=== PATIENT | female | born 1965 | race Caucasian/White ===

== ENCOUNTER 2016-11-02 13:19 | Emergency (ER) | payer OTHER ==
[2016-11-02] MEDS ORDERED: ONDANSETRON 2MG/ML, 2ML ONE (14:25)
[2016-11-02] MEDS ORDERED: HYDROmorphone 1 MG/ML, 1ML ONE (14:25)
[2016-11-02 15:02] LABS: ASPARTATE AMINO TRANSFERASE 18 U/L (15-37); BLOOD UREA NITROGEN 10 mg/dL (7-18)
[2016-11-02] MEDS ORDERED: OMNIPAQUE 350 MG/ML, 100ML BOTTLE ONE (15:30)
[2016-11-02] MEDS ORDERED: CIPROFLOXACIN 500 MG TABLET ONE (16:33)
[2016-11-02] MEDS ORDERED: METRONIDAZOLE PMX 500MG/100ML 100 ML ONE (16:33)
== END 2016-11-02 17:02 ==
LOC: ED 13:19
DX: K57.32 Diverticulitis of large intestine without perforation or abscess without bleeding (principal)
CPT/HCPCS: 36415; 74177; 80053; 81001; 85025; 99285; Q9967

== ENCOUNTER 2017-05-03 16:01 | Emergency (ER) | payer OTHER ==
[~2017-05-03] VITALS: Ht 170.2 cm; Wt 72.7 kg
[~2017-05-03 16:01] MED LIST: ACET650S21 PO; BUPR-173 PO; ESCI10TA10 PO; LACT1CAP11 PO; LEVO150T PO; OMEG1CAP23 PO
[2017-05-03 16:45] LABS: HEMATOCRIT 42.3 % (34.6-47.8); HEMOGLOBIN 14.4 g/dL (11.7-16.4); WHITE BLOOD COUNT 11.4 x10^3/uL (3.4-10)
[2017-05-03 16:56] LABS: ASPARTATE AMINO TRANSFERASE 15 U/L (15-37); BLOOD UREA NITROGEN 13 mg/dL (7-18)
[2017-05-03] MEDS ORDERED: SODIUM CHLORIDE 0.9% 1,000ML IVBOLUS ONE (17:00)
[2017-05-03] MEDS ORDERED: FAMOTIDINE 20 MG/2 ML IVP ONE (17:00)
[2017-05-03] MEDS ORDERED: ONDANSETRON 2MG/ML, 2ML IVPush ONE (17:00)
[2017-05-03] MEDS ORDERED: SODIUM CHLORIDE FLUSH 10ML SYR IVF ONE (17:30)
[2017-05-03] MEDS ORDERED: FAMOTIDINE 20 MG/2 ML ONE (17:40)
[2017-05-03] MEDS ORDERED: ONDANSETRON 2MG/ML, 2ML ONE (17:40)
[2017-05-03] MEDS ORDERED: morphine SULFATE 10 MG/ML, 1ML ONE ×2 (17:42→19:58)
[2017-05-03] MEDS: morphine SULFATE 10 MG/ML, 1ML IVPush PRN ×2 (17:46→20:11)
[2017-05-03 18:04] LABS: PATH.CAST-FLAG NOT PRESENT; SPERM-FLAG NOT PRESENT; SRC-FLAG NOT PRESENT; XTAL-FLAG NOT PRESENT; YLC-FLAG NOT PRESENT
[2017-05-03] MEDS ORDERED: CIPROFLOXACIN/PMX 400MG/200ML 200 ML ONE (18:25)
[2017-05-03] MEDS ORDERED: METRONIDAZOLE PMX 500MG/100ML 100 ML IV ONE (18:30)
[2017-05-03] MEDS ORDERED: CIPROFLOXACIN/PMX 400MG/200ML 200 ML IV ONE (18:30)
[2017-05-03 19:24] VITALS: BP 134/63
[2017-05-03] MEDS ORDERED: METRONIDAZOLE PMX 500MG/100ML 100 ML ONE (19:57)
== END 2017-05-03 21:43 | disposition home or self-care (01) ==
LOC: ED 21:37
DX: K57.32 Diverticulitis of large intestine without perforation or abscess without bleeding (principal); Z88.2 Allergy status to sulfonamides; Z88.1 Allergy status to other antibiotic agents
CPT/HCPCS: 36415; 80053; 81001; 83690; 85025; 87086; 96361; 96365; 96366; 96367; 96375; 96376; 99285; J0744; J2270; J2405; J7030; S0028

== ENCOUNTER → 2017-06-23 | Outpatient (CLI) | payer OTHER ==
[~2017-06-23] MED LIST changes: +CLON1TAB PO; +DIAZ2TAB PO; +MULT1TAB60 PO; +ZOLP-413 PO
== END | disposition home or self-care (01) ==
LOC: STAR 11:28 → MERGE 11:30
PROVIDERS: ATTEND Surgery
DX: Z01.818 Encounter for other preprocedural examination (principal); K57.30 Diverticulosis of large intestine without perforation or abscess without bleeding; R94.31 Abnormal electrocardiogram [ECG] [EKG]
CPT/HCPCS: 93005

== ENCOUNTER 2017-06-28 11:30 | Inpatient (IN) | payer OTHER ==
[2017-06-23 10:00] VITALS: BP 115/82
[~2017-06-28] VITALS: Ht 170.2 cm; Wt 74.2 kg
[~2017-06-28 11:30] MED LIST changes: +BUPIVACAINE/PF 0.5% ONE; +DEXAMETHASONE 4 MG/ML, 1ML ONE; +INDOCYANINE GREEN 25 MG VIAL ONE; +ONDANSETRON 2MG/ML, 2ML ONE; +PROPOFOL 10 MG/ML, 50ML ONE
[2017-06-28] MEDS ORDERED: BUPIVACAINE/PF 0.5% ONE (14:00)
[2017-06-28] MEDS ORDERED: EPINEPHRINE 1 MG/ML, 1ML ONE (14:01)
[2017-06-28] MEDS ORDERED: INDOCYANINE GREEN 25 MG VIAL ONE ×2 (14:01→16:37)
[2017-06-28] MEDS ORDERED: LACTATED RINGERS 1,000 ML IV SCH (14:02)
[2017-06-28] MEDS ORDERED: LIDOCAINE 1%, 2ML ONE (14:10)
[2017-06-28] MEDS ORDERED: SCOPOLAMINE PATCH, 1.5MG PATCH.TD72 TD ONE ×2 (14:15→14:30)
[2017-06-28] MEDS ORDERED: ROCURONIUM 10 MG/ML,10ML ONE (14:18)
[2017-06-28] MEDS ORDERED: PROPOFOL 10 MG/ML, 20ML ONE (14:18)
[2017-06-28] MEDS ORDERED: CEFOTETAN PMX 2GM/50ML 50 ML ONE (14:19)
[2017-06-28] MEDS ORDERED: MIDAZOLAM 1 MG/ML, 2ML ONE (14:20)
[2017-06-28] MEDS ORDERED: FENTANYL PF 250 MCG/5ML ONE (14:20)
[2017-06-28] MEDS ORDERED: HYDROmorphone 2 MG/ML, 1ML ONE (14:21)
[2017-06-28] MEDS ORDERED: GLYCOPYRROLATE 0.4 MG/2 ML, 2ML ONE (17:32)
[2017-06-28] MEDS ORDERED: NEOSTIGMINE 1 MG/ML, 10ML ONE (17:32)
[2017-06-28] MEDS ORDERED: DIPHENHYDRAMINE 25 MG CAPSULE PO PRN (18:00)
[2017-06-28] MEDS ORDERED: LORazepam 1MG TABLET PO PRN (18:00)
[2017-06-28] MEDS ORDERED: ACETAMINOPHEN 325 MG TABLET PO PRN (18:00)
[2017-06-28] MEDS ORDERED: OXYcodone 5 MG/5 ML ORAL.SOL UDC PO PRN (18:00)
[2017-06-28] MEDS ORDERED: FENTANYL PF 100 MCG/2ML IV PRN (18:00)
[2017-06-28] MEDS: ENOXAPARIN 30 MG/0.3 ML SQ SCH (18:00)
[2017-06-28] MEDS ORDERED: HYDROmorphone 1 MG/ML, 1ML IV PRN (18:00)
[2017-06-28] MEDS: ACETAMINOPHEN 500 MG TABLET PO SCH (18:00)
[2017-06-28] MEDS ORDERED: EPHEDRINE 50 MG/ML, 1ML IVPush PRN (18:00)
[2017-06-28] MEDS ORDERED: CALCIUM CARBONATE 500 MG TAB.CHEW PO PRN (18:00)
[2017-06-28] MEDS ORDERED: ONDANSETRON 2MG/ML, 2ML IVPush PRN ×2 (18:00)
[2017-06-28] MEDS ORDERED: hydrALAzine 20 MG/ML, 1ML IV PRN (18:00)
[2017-06-28] MEDS ORDERED: ALBUTEROL SULFATE 2.5 MG/3 ML NPPB PRN (18:00)
[2017-06-28] MEDS ORDERED: LABETALOL 5MG/ML, 20ML IV PRN (18:00)
[2017-06-28] MEDS ORDERED: METOPROLOL 1 MG/ML, 5ML IV PRN (18:00)
[2017-06-28] MEDS ORDERED: ACETAMINOPHEN 650 MG/20.3 ML UDC ONE (18:33)
[2017-06-28] MEDS ORDERED: OXYcodone 5 MG/5 ML ORAL.SOL UDC ONE (18:33)
[2017-06-28] MEDS ORDERED: FENTANYL PF 100 MCG/2ML ONE (18:33)
[2017-06-28 19:45] VITALS: BP 119/68
[2017-06-28] MEDS: SODIUM CHLORIDE FLUSH 10ML SYR IVF SCH (21:15)
[2017-06-28] MEDS: IBUPROFEN 800 MG TABLET PO SCH (21:15)
[2017-06-28] MEDS: D5%-0.45NACL+KCL 20MEQ 1,000 ML IV SCH (21:15)
[2017-06-28] MEDS: OXYcodone IR 5MG TABLET PO PRN (23:03)
[2017-06-29] MEDS: ACETAMINOPHEN 500 MG TABLET PO SCH ×4 (00:19→17:50)
[2017-06-29] MEDS: OXYcodone IR 5MG TABLET PO PRN ×5 (00:24→17:51)
[2017-06-29 00:25] VITALS: BP 117/75
[2017-06-29] MEDS ORDERED: HYDROmorphone 2 MG/ML, 1ML ONE ×3 (02:47→20:24)
[2017-06-29] MEDS: HYDROmorphone 1 MG/ML, 1ML IVPush PRN ×3 (02:50→20:28)
[2017-06-29 04:02] VITALS: BP 98/63
[2017-06-29 05:00] LABS: BASOPHILS # (AUTO) 0.02 x10^3/uL (0-0.1); BASOPHILS % (AUTO) 0 % (0-1); EOSINOPHILS % (AUTO) 0 % (1-7); LYMPHOCYTES # (AUTO) 0.62 x10^3/uL (1-3.4); LYMPHOCYTES % (AUTO) 7 % (22-44); MD NO; MEAN CORPUSCULAR HEMOGLOBIN 31.4 pg (27.0-34.8); MEAN CORPUSCULAR HGB CONC 34.3 g/dL (32.4-35.8); MEAN CORPUSCULAR VOLUME 91.5 fL (80-100); MEAN PLATELET VOLUME 9.2 fL (7.4-10.4); MONOCYTES # (AUTO) 0.69 x10^3/uL (0.2-0.8); MONOCYTES % (AUTO) 8 % (2-9); NEUTROPHILS # (AUTO) 7.29 x10^3/uL (1.8-6.8); NEUTROPHILS % (AUTO) 85 % (42-75); PLATELET COUNT 224 x10^3/uL (130-400); RED BLOOD COUNT 3.93 x10^6/uL (3.82-5.3)
[2017-06-29 05:15] LABS: ALBUMIN 3.2 g/dL (3.4-5.0); ANION GAP 6 mmol/L (5-15); CALCIUM 8.5 mg/dL (8.5-10.1); CHLORIDE 109 mmol/L (98-107); CREATININE 0.73 mg/dL (0.55-1.02)
[2017-06-29] MEDS: LEVOTHYROXINE 125 MCG TABLET PO SCH (05:40)
[2017-06-29] MEDS: ENOXAPARIN 30 MG/0.3 ML SQ SCH ×2 (05:41→18:42)
[2017-06-29 07:20] VITALS: BP 126/78
[2017-06-29] MEDS: SODIUM CHLORIDE FLUSH 10ML SYR IVF SCH ×2 (09:16→20:27)
[2017-06-29] MEDS: BUPROPION SR 100 MG TABLET PO SCH (09:39)
[2017-06-29] MEDS: IBUPROFEN 800 MG TABLET PO SCH ×3 (09:48→20:27)
[2017-06-29] MEDS: MULTIVITAMIN 1 TABLET PO SCH (09:48)
[2017-06-29] MEDS: D5%-0.45NACL+KCL 20MEQ 1,000 ML IV SCH (13:23)
[2017-06-29 16:00] VITALS: BP 105/79
[2017-06-29 20:08] VITALS: BP 138/87
[2017-06-30 01:38] VITALS: BP 117/68
[2017-06-30] MEDS: OXYcodone IR 5MG TABLET PO PRN ×6 (03:44→21:54)
[2017-06-30 06:35] VITALS: BP 110/72
[2017-06-30] MEDS: LEVOTHYROXINE 125 MCG TABLET PO SCH (06:38)
[2017-06-30] MEDS: ACETAMINOPHEN 500 MG TABLET PO SCH ×4 (06:38→17:02)
[2017-06-30] MEDS: ENOXAPARIN 30 MG/0.3 ML SQ SCH ×2 (06:38→17:02)
[2017-06-30] MEDS: D5%-0.45NACL+KCL 20MEQ 1,000 ML IV SCH (08:14)
[2017-06-30] MEDS: MULTIVITAMIN 1 TABLET PO SCH (08:41)
[2017-06-30] MEDS: DOCUSATE 100 MG CAPSULE PO SCH ×2 (08:41→20:06)
[2017-06-30] MEDS: IBUPROFEN 800 MG TABLET PO SCH ×3 (08:41→21:54)
[2017-06-30] MEDS: LACTOBACILLUS 1GM/ PACKET PO SCH ×3 (08:42→20:06)
[2017-06-30] MEDS: KETOROLAC 30 MG/1 ML IVPush SCH ×3 (08:42→20:05)
[2017-06-30] MEDS: SODIUM CHLORIDE FLUSH 10ML SYR IVF SCH ×2 (08:42→20:06)
[2017-06-30] MEDS: BUPROPION SR 100 MG TABLET PO SCH (08:43)
[2017-06-30 12:59] VITALS: BP 120/77
[2017-06-30 19:11] VITALS: BP 109/71
[2017-07-01] MEDS: ACETAMINOPHEN 500 MG TABLET PO SCH ×5 (01:21→23:36)
[2017-07-01] MEDS: OXYcodone IR 5MG TABLET PO PRN ×6 (01:22→23:36)
[2017-07-01 01:31] VITALS: BP 137/88
[2017-07-01] MEDS: KETOROLAC 30 MG/1 ML IVPush SCH ×4 (01:46→21:12)
[2017-07-01] MEDS: D5%-0.45NACL+KCL 20MEQ 1,000 ML IV SCH (03:31)
[2017-07-01] MEDS: ENOXAPARIN 30 MG/0.3 ML SQ SCH ×2 (06:48→17:56)
[2017-07-01] MEDS: LEVOTHYROXINE 125 MCG TABLET PO SCH (06:50)
[2017-07-01 07:23] VITALS: BP 130/72
[2017-07-01] MEDS: BUPROPION SR 100 MG TABLET PO SCH (08:52)
[2017-07-01] MEDS: SODIUM CHLORIDE FLUSH 10ML SYR IVF SCH ×2 (08:52→21:00)
[2017-07-01] MEDS: MULTIVITAMIN 1 TABLET PO SCH (08:52)
[2017-07-01] MEDS: DOCUSATE 100 MG CAPSULE PO SCH ×2 (09:00→21:12)
[2017-07-01] MEDS: IBUPROFEN 800 MG TABLET PO SCH ×3 (09:00→21:00)
[2017-07-01] MEDS: LACTOBACILLUS 1GM/ PACKET PO SCH ×3 (12:17→21:12)
[2017-07-01] MEDS: NYSTATIN 500,000 UNITS/5 ML UDC PO SCH ×3 (12:17→21:12)
[2017-07-01 12:58] VITALS: BP 104/71
[2017-07-01 19:16] VITALS: BP 144/86
[2017-07-02] MEDS: D5%-0.45NACL+KCL 20MEQ 1,000 ML IV SCH (01:01)
[2017-07-02 02:41] VITALS: BP 131/88
[2017-07-02] MEDS: KETOROLAC 30 MG/1 ML IVPush SCH ×2 (02:48→08:00)
[2017-07-02] MEDS: OXYcodone IR 5MG TABLET PO PRN (04:11)
[2017-07-02] MEDS: ENOXAPARIN 30 MG/0.3 ML SQ SCH (06:00)
[2017-07-02] MEDS: ACETAMINOPHEN 500 MG TABLET PO SCH (06:42)
[2017-07-02] MEDS: LEVOTHYROXINE 125 MCG TABLET PO SCH (06:42)
[2017-07-02] MEDS: NYSTATIN 500,000 UNITS/5 ML UDC PO SCH ×2 (06:42→11:10)
[2017-07-02 07:22] VITALS: BP 138/89
[2017-07-02] MEDS: MULTIVITAMIN 1 TABLET PO SCH (08:33)
[2017-07-02] MEDS: BUPROPION SR 100 MG TABLET PO SCH (08:34)
[2017-07-02] MEDS: SODIUM CHLORIDE FLUSH 10ML SYR IVF SCH (08:40)
[2017-07-02] MEDS: LACTOBACILLUS 1GM/ PACKET PO SCH (08:40)
[2017-07-02] MEDS: IBUPROFEN 800 MG TABLET PO SCH (08:40)
[2017-07-02] MEDS: DOCUSATE 100 MG CAPSULE PO SCH (08:43)
[2017-07-02] MEDS ORDERED: OXYC5TAB3 PO (10:04)
[2017-07-02 11:13] VITALS: BP 137/87
== END 2017-07-02 11:50 | disposition home or self-care (01) | DRG 330 ==
LOC: ORIP 13:35 → MERGE 15:30 → 4NOR 19:50
PROVIDERS: ADMIT Surgery; ATTEND Surgery
PROC: 0DU Gastrointestinal System, Supplement (ICD-10-PCS; 2017-06-28)
PROC: 8E0W4CZ Robotic Assisted Procedure of Trunk Region, Percutaneous Endoscopic Approach (ICD-10-PCS; 2017-06-28)
PROC: 0DTG4ZZ Resection of Left Large Intestine, Percutaneous Endoscopic Approach (ICD-10-PCS; principal; 2017-06-28 15:30)
DX: K57.92 Diverticulitis of intestine, part unspecified, without perforation or abscess without bleeding (principal); E44.0 Moderate protein-calorie malnutrition; E03.9 Hypothyroidism, unspecified; Z88.2 Allergy status to sulfonamides; Z88.8 Allergy status to other drugs, medicaments and biological substances
CPT/HCPCS: 36415; 80048; 82040; 84703; 85025; 86850; 86900; 88305; 88307; J0171; J1100; J1170; J1650; J1885; J2250; J2405; J2704; J2710; J3010; J3490; J3480; J7120; S0074

== ENCOUNTER 2018-01-06 07:05 | Day surgery (SDC) | payer OTHER ==
[~2018-01-06] VITALS: Ht 170.2 cm; Wt 73.2 kg
[~2018-01-06 07:05] MED LIST changes: +ALBU8.5H8 INH; -BUPIVACAINE/PF 0.5% ONE; +BUPR150T73 PO; -DEXAMETHASONE 4 MG/ML, 1ML ONE; -INDOCYANINE GREEN 25 MG VIAL ONE; +LEVO100T PO; +MULT-658 PO; -ONDANSETRON 2MG/ML, 2ML ONE; +OXYC5TAB3 PO; -PROPOFOL 10 MG/ML, 50ML ONE
[2018-01-06] MEDS ORDERED: ACETAMINOPHEN 500 MG TABLET PO ONE (07:30)
[2018-01-06] MEDS ORDERED: LACTATED RINGERS 1,000 ML IV SCH (07:30)
[2018-01-06] MEDS ORDERED: GABAPENTIN 300 MG CAPSULE PO ONE (07:30)
[2018-01-06 07:40] VITALS: BP 125/85
[2018-01-06] MEDS ORDERED: FENTANYL PF 250 MCG/5ML ONE (08:00)
[2018-01-06] MEDS ORDERED: MIDAZOLAM 1 MG/ML, 2ML ONE (08:00)
[2018-01-06] MEDS ORDERED: PROPOFOL 10 MG/ML, 20ML ONE (08:01)
[2018-01-06] MEDS ORDERED: ONDANSETRON 2MG/ML, 2ML ONE (08:02)
[2018-01-06] MEDS ORDERED: DEXAMETHASONE 4 MG/ML, 1ML ONE ×2 (08:02)
[2018-01-06] MEDS ORDERED: CEFAZOLIN 1,000 MG ONE (08:51)
[2018-01-06] MEDS ORDERED: SCOPOLAMINE PATCH, 1.5MG PATCH.TD72 TD ONE ×2 (08:54)
[2018-01-06] MEDS ORDERED: PROMETHAZINE 25 MG SUPP PR PRN (09:00)
[2018-01-06] MEDS ORDERED: ACETAMINOPHEN 325 MG TABLET PO PRN (09:00)
[2018-01-06] MEDS ORDERED: FENTANYL PF 100 MCG/2ML IV PRN (09:00)
[2018-01-06] MEDS ORDERED: ALBUTEROL SULFATE 2.5 MG/3 ML NPPB PRN (09:00)
[2018-01-06] MEDS ORDERED: OXYcodone 5 MG/5 ML ORAL.SOL UDC PO PRN (09:00)
[2018-01-06] MEDS ORDERED: PROMETHAZINE 12.5 MG SUPP PR PRN (09:00)
[2018-01-06] MEDS ORDERED: ONDANSETRON ODT 8 MG PO PRN (09:00)
[2018-01-06] MEDS ORDERED: MORPHINE SULFATE 4 MG/ML, 1ML IVPush PRN (09:00)
[2018-01-06] MEDS ORDERED: hydrALAzine 20 MG/ML, 1ML IV PRN (09:00)
[2018-01-06] MEDS ORDERED: LABETALOL 5MG/ML, 20ML IV PRN (09:00)
[2018-01-06] MEDS ORDERED: ONDANSETRON 2MG/ML, 2ML IV PRN (09:00)
[2018-01-06] MEDS ORDERED: PROMETHAZINE 25 MG/ML, 1ML IV PRN (09:00)
[2018-01-06] MEDS ORDERED: MEPERIDINE/PF 25MG/0.5ML IVPush PRN (09:00)
[2018-01-06] MEDS ORDERED: HYDROmorphone 1 MG/ML, 1ML IV PRN (09:00)
[2018-01-06] MEDS ORDERED: BUPIVACAINE/PF-EPI 0.25% 1:200K INFIL ONE (09:12)
[2018-01-06] MEDS ORDERED: OXYcodone 5 MG/5 ML ORAL.SOL UDC ONE (09:38)
[2018-01-06] MEDS ORDERED: FENTANYL PF 100 MCG/2ML ONE (09:38)
== END 2018-01-06 13:00 | disposition home or self-care (01) ==
LOC: OUT 07:05
PROVIDERS: ATTEND Obstetrics & Gynecology
DX: N95.0 Postmenopausal bleeding (principal); N88.2 Stricture and stenosis of cervix uteri; E03.9 Hypothyroidism, unspecified; F41.9 Anxiety disorder, unspecified; J45.909 Unspecified asthma, uncomplicated; F32.9 Major depressive disorder, single episode, unspecified; Z80.3 Family history of malignant neoplasm of breast; Z98.890 Other specified postprocedural states; Z90.49 Acquired absence of other specified parts of digestive tract; Z88.1 Allergy status to other antibiotic agents; Z88.5 Allergy status to narcotic agent; Z88.8 Allergy status to other drugs, medicaments and biological substances; Z79.899 Other long term (current) drug therapy; Z88.2 Allergy status to sulfonamides; Z72.89 Other problems related to lifestyle
CPT/HCPCS: 58558; 88305; J0690; J1100; J2250; J2405; J2704; J3010; J7120

== ENCOUNTER 2018-07-06 12:54 | Emergency (ER) | payer OTHER ==
[~2018-07-06] VITALS: Ht 170.2 cm; Wt 73.2 kg
[2018-07-06 13:50] LABS: BASOPHILS # (AUTO) 0.03 x10^3/uL (0-0.1); BASOPHILS % (AUTO) 0 % (0-1); EOSINOPHILS % (AUTO) 2 % (1-7); LYMPHOCYTES # (AUTO) 1.69 x10^3/uL (1-3.4); LYMPHOCYTES % (AUTO) 17 % (22-44); MD NO; MEAN CORPUSCULAR HEMOGLOBIN 31.3 pg (27.0-34.8); MEAN CORPUSCULAR HGB CONC 34.1 g/dL (32.4-35.8); MEAN CORPUSCULAR VOLUME 91.8 fL (80-100); MEAN PLATELET VOLUME 9.1 fL (7.4-10.4); MONOCYTES # (AUTO) 0.72 x10^3/uL (0.2-0.8); MONOCYTES % (AUTO) 7 % (2-9); NEUTROPHILS # (AUTO) 7.16 x10^3/uL (1.8-6.8); NEUTROPHILS % (AUTO) 73 % (42-75); PLATELET COUNT 280 x10^3/uL (130-400); RED BLOOD COUNT 4.72 x10^6/uL (3.82-5.3); RED CELL DISTRIBUTION WIDTH 12.6 % (9.6-15.2)
[2018-07-06 13:57] LABS: HCG UR SG 1.011 (1.003-1.030); MICROSCOPIC AUTO
[2018-07-06 14:01] LABS: ANION GAP 7 mmol/L (5-15); CALCIUM 9.6 mg/dL (8.5-10.1); CHLORIDE 103 mmol/L (98-107)
[2018-07-06 14:04] LABS: ALANINE AMINOTRANSFERASE 22 U/L (12-78); ALKALINE PHOSPHATASE 61 U/L (45-117); BILIRUBIN,TOTAL 0.5 mg/dL (0.2-1.0); CREATININE 0.79 mg/dL (0.55-1.02); TOTAL PROTEIN 8.2 g/dL (6.4-8.2)
[2018-07-06 14:06] LABS: CULTURE INDICATED? YES
[2018-07-06 14:45] VITALS: BP 122/51
--- NOTE | 2018-07-06 15:46 | NUR ---
patient safe in [facility], started, MD Zuleta to bedside, CT scan ordered, patient has had blood drawn and provided urine sample from waiting room, NADN, VSS, PWD, call light in reach, blankets provided, NPO instructions and fall risk discussed, no additional needs at this time.
[2018-07-06] MEDS ORDERED: SODIUM CHLORIDE FLUSH 10ML SYR IVF ONE (16:00)
[2018-07-06] MEDS ORDERED: OMNIPAQUE 350 MG/ML, 100ML BOTTLE ONE (16:49)
--- NOTE | 2018-07-06 17:30 | NUR ---
Discharge instructions reviewed at bedside at length with this RN and MD Zuleta, patient's spouse present, all questions answered VSS on room air, ambulatory to discharge desk safely unassisted.
== END 2018-07-06 17:31 | disposition home or self-care (01) ==
LOC: ED 16:44
DX: R10.32 Left lower quadrant pain (principal); B02.9 Zoster without complications; Z87.19 Personal history of other diseases of the digestive system; Z86.19 Personal history of other infectious and parasitic diseases
CPT/HCPCS: 36415; 74177; 80053; 81001; 81025; 83690; 85025; 87086; 99284; Q9967

== ENCOUNTER → 2020-05-28 | Outpatient (CLI) | payer OTHER ==
[~2020-05-28] MED LIST changes: +MULT-449 PO; -MULT1TAB60 PO
== END | disposition home or self-care (01) ==
LOC: RAD 15:33
PROVIDERS: ATTEND Family Medicine
DX: R07.81 Pleurodynia (principal); M25.511 Pain in right shoulder; M54.9 Dorsalgia, unspecified
CPT/HCPCS: 71045; 72072